=== PATIENT | female | born 1970 | race Caucasian/White ===

== ENCOUNTER → 2019-11-27 10:03 | Outpatient (BNVA) | payer BC, SELFPAY | PROVIDERS: Family Provider Family Medicine; Visit Provider Emergency Medicine | DX: Z11.59 Encounter for screening for other viral diseases (principal); J45.21 Mild intermittent asthma with (acute) exacerbation; J40 Bronchitis, not specified as acute or chronic | CPT/HCPCS: 87635 ==

== ENCOUNTER → 2020-09-17 13:18 | Outpatient (BNVA) | payer BC, SELFPAY | PROVIDERS: Family Provider Family Medicine; Visit Provider Nurse Practitioner Family | DX: J06.9 Acute upper respiratory infection, unspecified (principal); Z20.822 Contact with and (suspected) exposure to COVID-19 | CPT/HCPCS: 87635 ==

== ENCOUNTER 2020-09-25 06:02 | Outpatient (CLI) | payer BC, SELFPAY ==
--- NOTE | 2020-09-25 07:03 | ED_ITS ---
HPI - General Adult General: Source: patient Mode of arrival: ambulatory Limitations: no limitations History of Present Illness: HPI narrative: Patient is here for outpatient Covid infusion. Patient states she was diagnosed with Covid 8 days ago. She states she has mild shortness of breath. Patient denies any other problems. Onset (ago): week(s) (1) Severity: mild Relieving factors: none Exacerbating factors: other (Exercise) Associated symptoms: Reports dyspnea and short of breath Review of Systems Const: Denies: fever(s) Resp: Reports: dyspnea and non-productive cough PFSH ED PFSH: Medical History Asthma Female Reproductive History: Spontaneous abortions: No Physical Exam Const: COMMON NORMALS: no acute distress, patient oriented x3, no limitations and well nourished (Mild cough. Oxygen saturation 100% on room air.) GENERAL APPEARANCE: cooperative HENMT: COMMON NORMALS: normocephalic and atraumatic HEAD & SCALP: normocephalic and atraumatic FACE & SINUS: normal facial exam Eye: COMMON NORMALS: EOMs intact bilaterally Neck/C-Spine: COMMON NORMALS: full ROM, no lymphadenopathy, supple and no meningeal signs GENERAL: Yes normal visual inspection Lymph: LYMPHATIC: no lymphadenopathy noted Chest: COMMONS NORMALS: normal inspection of the chest and normal palpation of entire chest wall CHEST: No Ecchymosis present and No rash Resp: COMMON NORMALS: normal respiratory effort, No retractions and clear to auscultation bilaterally EFFORT & INSPECTION: No respiratory distress AUSCULTATION: clear to auscultation bilaterally Cardio: COMMON NORMALS: regular rate, regular rhythm and Peripheral pulses 2+ throughout JUGULAR VENOUS DISTENTION: no JVD RATE: regular rate RHYTHM: regular rhythm PERIPHERAL PULSES: Peripheral pulses 2+ throughout GI: COMMON NORMALS: Normal to inspection, nondistended, normoactive bowel sounds present and non-tender : COMMON NORMALS: Yes no CVA tenderness BLADDER/KIDNEY EXAM: Yes no CVA tenderness Back/Pelvis: COMMON NORMALS: no CVA tenderness Extremity: COMMON NORMALS: normal to inspection, full ROM and capillary refill normal Neuro: COMMON NORMALS: patient oriented x3, CN's II-XII intact bilaterally, no focal motor deficits and no sensory deficits noted MENINGEAL SIGNS: Yes no meningeal signs Psych: COMMON NORMALS: mental status grossly normal and Normal thought process present THOUGHT PROCESS: Normal thought process present Skin: COMMON NORMALS: no rashes or lesions noted and no wounds GENERAL SKIN EXAM: no rashes or lesions noted Discharge Plan Discharge Patient Disposition: Home Prescriptions: No Action gabapentin 100 mg capsule 200 mg PO .COMPLEX RF: 0 albuterol sulfate 90 mcg/actuation HFA aerosol inhaler 2 puff INHALATION Q6H PRN (Reason: shortness of breath or wheezing) Qty: 8.5 RF: 0 Discharge Orders: Discharge Order (Routine); Ordered 09/25/20 Ordered By: Chad Montes De Oca Referrals: Sonu Walters DO [Family Provider] - Activity: Increase activity as tolerated Patient Instructions: Viral Syndrome - Adult Activity Restrictions/Additional Instructions: Return if any problems. Follow-up with family doctor as needed. Coding Level of Care Code ED [employer] Director for [employer] Fwd Exam Comprehensive
[2020-09-25 07:20] VITALS: BP 114/86; PULSE 64; RESP 20; O2SAT 100
[2020-09-25 08:37] VITALS: BP 105/79; PULSE 64; RESP 18; O2SAT 97
[2020-09-25 09:34] VITALS: BP 104/80; PULSE 61; RESP 18; O2SAT 98
[2020-09-25 10:00] VITALS: BP 104/80; PULSE 64; RESP 18; O2SAT 98
--- NOTE | 2020-09-27 14:56 | DCPLANNER ---
manager training and development had message that patient had received the BAM infusion. manager training and development called to check on patient to see how she was feeling. manager training and development spoke with patient, she stated that before the infusion she had body aches, sore throat, was nauseous, had diarrhea. Patient stated that she is feeling much better.
== END 2020-09-25 06:03 | disposition home or self-care (01) ==
PROVIDERS: Family Provider Family Medicine; Visit Provider Nurse Practitioner Family
DX: U07.1 COVID-19 (principal)

== ENCOUNTER → 2022-10-30 12:08 | Outpatient (BNVA) | payer BC, SELFPAY | PROVIDERS: Family Provider Family Medicine; PCP Registered Nurse; Referring Provider Registered Nurse; Visit Provider Internal Medicine Rheumatology | DX: Z79.899 Other long term (current) drug therapy (principal); M19.90 Unspecified osteoarthritis, unspecified site; R19.7 Diarrhea, unspecified; Z11.59 Encounter for screening for other viral diseases; Z11.1 Encounter for screening for respiratory tuberculosis; R76.8 Other specified abnormal immunological findings in serum; K52.9 Noninfective gastroenteritis and colitis, unspecified; Z71.85 Encounter for immunization safety counseling | CPT/HCPCS: 36415; 72040; 72100; 73130; 80053; 85025; 85651; 86480; 86704; 86803; 87340 ==

== ENCOUNTER → 2023-03-02 11:41 | Outpatient (BNVA) | payer BC, SELFPAY | PROVIDERS: Family Provider Family Medicine; PCP Registered Nurse; Visit Provider Internal Medicine Rheumatology | DX: Z79.899 Other long term (current) drug therapy (principal); M19.90 Unspecified osteoarthritis, unspecified site; M25.559 Pain in unspecified hip; R51.9 Headache, unspecified; R20.0 Anesthesia of skin; R76.8 Other specified abnormal immunological findings in serum; K52.9 Noninfective gastroenteritis and colitis, unspecified; Z71.85 Encounter for immunization safety counseling | CPT/HCPCS: 36415; 72170; 80076; 82565; 84439; 84443; 85025; 86140 ==

== ENCOUNTER 2023-03-17 09:08 | Outpatient (CLI) | payer BC, SELFPAY ==
--- NOTE | 2023-03-17 09:30 | CT_ITS ---
WS: [id number] CT HEAD TECHNIQUE: Noncontrast CT of the head obtained from the skullbase to the vertex. CLINICAL INFORMATION: R51.9 - Headache, unspecified COMPARISON: None. DLP: 939.[address] scans at [facility] use at least one of these dose optimization techniques: automated e xposure control; mA and/or kV adjustment per patient size (includes targeted exams where dose is matc hed to clinical indication); or iterative reconstruction. FINDINGS: No evidence of intracranial hemorrhage or mass effect. Ventricular system and basal cisterns are caldera nt. No extra-axial fluid collections. No evidence of mass or mass effect. Normal johnson-white different iation. Paranasal sinuses and mastoid air cells are well aerated. .Normal visualized soft tissues. IMPRESSION: 1. No evidence of intracranial hemorrhage or mass effect. 2. No acute intracranial findings.
== END 2023-03-17 09:09 | disposition home or self-care (01) ==
LOC: RAD 09:10
PROVIDERS: Family Provider Family Medicine; PCP Registered Nurse; Visit Provider Internal Medicine Rheumatology
DX: R51.9 Headache, unspecified (principal); R20.0 Anesthesia of skin
CPT/HCPCS: 70450

== ENCOUNTER → 2023-04-29 09:30 | Outpatient (BNVA) | payer BC, SELFPAY | PROVIDERS: Family Provider Family Medicine; PCP Registered Nurse; Visit Provider Psychiatry & Neurology Neurology | DX: R51.9 Headache, unspecified (principal); R55 Syncope and collapse; R56.9 Unspecified convulsions; R47.81 Slurred speech; R20.9 Unspecified disturbances of skin sensation; Z79.899 Other long term (current) drug therapy | CPT/HCPCS: 36415; 82306; 82607; 82746; 83735; 83921; 84155; 84165; 86334; 86617 ==

== ENCOUNTER 2023-05-19 15:49 | Outpatient (CLI) | payer BC, SELFPAY ==
[2023-05-19] MEDS: iohexol 350 mg/mL 500 mL Btl (per mL) IV (16:27)
--- NOTE | 2023-05-19 16:30 | CT_ITS ---
WS: [id number] CT ANGIOGRAM CEREBRAL AND CAROTID ARTERIES HISTORY: R51.9 - Headache, unspecified TECHNIQUE: CT angiogram is performed of the carotid and cerebral arteries. During arterial injection imaging is obtained from the skull vertex to the aortic arch in 1.25 mm imaging. Coronal and sagittal reformats are submitted. Additional multi planar reformats of the carotid and cerebral arteries are submitted, MIP imaging also reviewed. NASCET criteria utilized. [facility] e at least one of these dose optimization techniques: automated exposure control; mA and/or kV adjust ment per patient size (includes targeted exams where dose is matched to clinical indication); or iter ative reconstruction. CONTRAST: Omnipaque 350; 100 mL IV. DLP: 1104.33 mGy.cm COMPARISON: 03/17/[address] head is first performed. There is no hemorrhage or mass effect. No edema or interval c hange. Ventricles are normal size. Carotid Angiogram: Right carotid: Common carotid artery: Arises normally from the innominate artery. No significant plaque or stenosis. Internal carotid artery: No plaque or stenosis. External carotid artery: Patent. Left carotid: Common carotid artery: Arises normally from the aorta. No significant plaque or stenosis. Internal carotid artery: No plaque or stenosis. External carotid artery: Patent. Right vertebral artery: Normal, codominant. Left vertebral artery: Arises directly from the arch. Normal and codominant. Subclavian arteries: No stenosis or significant abnormality. Upper thorax: Normal. Thyroid gland: Normal. Osseous structures: Mild degenerative disc disease at C6-7. CEREBRAL ANGIOGRAM: Intracranial vertebral arteries: Normal with no significant atherosclerosis. Basilar artery: No significant stenosis or occlusion. No aneurysm. Intracranial Internal carotid arteries: Demonstrates no significant stenosis or plaque. Middle cerebral arteries: Normal. Anterior cerebral arteries and ACOM: Normal. Posterior cerebral arteries and PCOM's: Normal. Dural venous sinuses are normally enhancing. Mastoid air cells: Normal. Paranasal sinuses: Normal. Calvarium: Normal. IMPRESSION: 1. Normal cervical carotid arteries. No stenosis or plaque. 2. No cerebral aneurysm or occlusions. 3. No vasculitis. 4. Normal vertebral arteries. LEFT vertebral artery arises directly from the arch. 5. Unremarkable [employer] [place].
== END 2023-05-19 15:50 | disposition home or self-care (01) ==
LOC: RAD 15:50
PROVIDERS: Family Provider Family Medicine; PCP Registered Nurse; Visit Provider Psychiatry & Neurology Neurology
DX: R51.9 Headache, unspecified (principal); R55 Syncope and collapse; R56.9 Unspecified convulsions
CPT/HCPCS: 70496; 70498; Q9967

== ENCOUNTER → 2023-06-01 15:32 | Outpatient (BNVA) | payer BC, SELFPAY | PROVIDERS: Family Provider Family Medicine; PCP Registered Nurse; Visit Provider Internal Medicine Rheumatology | DX: Z79.899 Other long term (current) drug therapy (principal); M19.90 Unspecified osteoarthritis, unspecified site; R76.8 Other specified abnormal immunological findings in serum | CPT/HCPCS: 81001; 87086 ==

== ENCOUNTER 2023-06-05 13:30 | Outpatient (CLI) | payer BC, SELFPAY ==
--- NOTE | 2023-06-05 14:00 | XR_ITS ---
WS: [email or web address] SCREENING DEXA SCAN [facility] CLINICAL INFORMATION: M81.0 - Age-related osteoporosis without current patholog... COMPARISON: None. FINDINGS: The L1-L4 bone mineral density measures 1.008 g/cm2. This corresponds to a T score score of -1.4 and Z score of -0.7. Left femoral neck bone mineral density measures 0.795 g/cm2. This corresponds to a T score of -1.7 an d Z score of -1.0. Right femoral neck bone mineral density measures 0.819 g/cm2. This corresponds to a T score -1.5of an d Z score of -0.8. Mean femoral neck bone mineral density measures 0.807 g/cm2. This corresponds to a T score of -1.6 an d Z score of -0.9. IMPRESSION: Osteopenia lumbar spine. Osteopenia femoral necks. Patient's FRAX calculated 10 year probability for major osteoporotic fracture is 10.6% and osteoporot ic hip fracture is 1.5%.
== END 2023-06-05 13:31 | disposition home or self-care (01) ==
LOC: RAD 13:31
PROVIDERS: Family Provider Family Medicine; PCP Registered Nurse; Visit Provider Internal Medicine Rheumatology
DX: Z13.820 Encounter for screening for osteoporosis (principal); M81.0 Age-related osteoporosis without current pathological fracture; M85.89 Other specified disorders of bone density and structure, multiple sites
CPT/HCPCS: 77080

== ENCOUNTER 2023-10-27 07:13 | Outpatient (CLI) | payer BC, SELFPAY ==
--- NOTE | 2023-10-27 08:00 | CT_ITS ---
WS: [email or web address] CT CERVICAL SPINE TECHNIQUE: Noncontrast and contrast-enhanced CT of the cervical spine with coronal and sagittal refor matted images. CLINICAL INFORMATION: G43.911 - Migraine, unspecified, intractable, with status... COMPARISON: None. DLP: 278.[address] scans at [facility] use at least one of these dose optimization techniques: automated e xposure control; mA and/or kV adjustment per patient size (includes targeted exams where dose is matc hed to clinical indication); or iterative reconstruction. FINDINGS: Straightening of the normal cervical lordosis. Disc osteophyte complex worse at C6-7. No high-grade c entral canal stenosis. No abnormal enhancement. C2-C3: Normal. C3-C4: Mild facet arthropathy. Spinal canal and foramina are patent. C4-C5: Mild facet arthropathy worse on the LEFT. Spinal canal and foramen are patent. C5-C6: Mild disc osteophyte ridging. Spinal canal is patent. Mild facet arthropathy. Uncovertebral calin int hypertrophy. Spinal canal and foramina are patent. C6-C7: Disc space narrowing with disc osteophyte complex. Spinal canal is patent. Mild LEFT and no si gnificant RIGHT bony foraminal narrowing. Mild facet arthropathy. C7-T1: No significant disc bulging. Spinal canal and foramen are patent. Visualized posterior nasopharynx: Normal. Prevertebral soft tissues: Normal. Slightly nodular thyroid. Lung apices are well aerated. Codominant and patent vertebral arteries appear patent. Common carotid and ICAs appear patent where v isualized. CT/CT cervical spine wo/w [id number] IMPRESSION: 1. Straightening of the normal cervical lordosis. Disc space narrowing worse a t C6-7. 2. Disc osteophyte complex C6-7 with mild LEFT bony foraminal narrowing. 3. Mild facet arthropathy worse at LEFT C3-C4 and LEFT C4-C5. 4. No abnormal enhancement. 5. Slightly nodular thyroid.
[2023-10-27] MEDS: iohexol 350 mg/mL 500 mL Btl (per mL) IV (08:07)
== END 2023-10-27 07:14 | disposition home or self-care (01) ==
LOC: RAD 07:13
PROVIDERS: Family Provider Family Medicine; PCP Registered Nurse; Visit Provider Psychiatry & Neurology Neurology
DX: G43.911 Migraine, unspecified, intractable, with status migrainosus (principal); R53.1 Weakness; M54.2 Cervicalgia
CPT/HCPCS: 72127; Q9967

== ENCOUNTER → 2024-01-26 07:41 | Outpatient (BNVA) | payer BC, SELFPAY | PROVIDERS: Family Provider Family Medicine; PCP Registered Nurse; Visit Provider Podiatrist Foot & Ankle Surgery | DX: M79.671 Pain in right foot (principal); M79.672 Pain in left foot; G62.9 Polyneuropathy, unspecified | CPT/HCPCS: 73630 ==

== ENCOUNTER → 2024-02-29 15:12 | Outpatient (BNVA) | payer BC, SELFPAY | PROVIDERS: Family Provider Family Medicine; PCP Registered Nurse; Visit Provider Internal Medicine Rheumatology | DX: M06.041 Rheumatoid arthritis without rheumatoid factor, right hand (principal); M06.042 Rheumatoid arthritis without rheumatoid factor, left hand; Z79.899 Other long term (current) drug therapy | CPT/HCPCS: 36415; 80076; 82306; 82565; 84439; 84443; 85025; 85651; 86140 ==

== ENCOUNTER 2024-03-22 14:53 | Outpatient (CLI) | payer MEDICAID, SELFPAY ==
--- NOTE | 2024-03-22 16:27 | XRR_ITS ---
PROCEDURE INFORMATION: Exam: XR Sacrum and Coccyx, 2 or More Views Exam date and time: 03/22/2024 4:32 PM Age: 53 years old Clinical indication: Pain in coccyx area; Additional info: Chronic pain syndrome TECHNIQUE: Imaging protocol: XR of the sacrum and coccyx, 2 or more views. COMPARISON: CR XR pelvis 1-2V* [id number] 03/02/2023 12:01 PM FINDINGS: Bones/joints: Normal. No acute fracture. Soft tissues: Normal. A nerve stimulator device is seen with electrode projecting over the left sacrum. XR/XR sacrum coccyx min 2V [id number] IMPRESSION: No acute findings.
== END 2024-03-22 14:54 | disposition home or self-care (01) ==
LOC: RAD 14:58
PROVIDERS: Family Provider Family Medicine; PCP Registered Nurse; Visit Provider Registered Nurse
DX: M53.3 Sacrococcygeal disorders, not elsewhere classified (principal); G89.4 Chronic pain syndrome; Z96.82 Presence of neurostimulator
CPT/HCPCS: 72220

== ENCOUNTER → 2024-03-28 09:05 | Outpatient (BNVA) | payer MEDICAID, SELFPAY | PROVIDERS: Family Provider Family Medicine; PCP Registered Nurse; Referring Provider Psychiatry & Neurology Neurology; Visit Provider Internal Medicine | DX: E04.1 Nontoxic single thyroid nodule (principal); R13.10 Dysphagia, unspecified; Z80.8 Family history of malignant neoplasm of other organs or systems | CPT/HCPCS: 99203; 99204 ==

== ENCOUNTER 2024-04-20 08:11 | Outpatient (CLI) | payer OTHER, MEDICAID, SELFPAY ==
--- NOTE | 2024-04-20 08:27 | US_ITS ---
WS: [id number] THYROID ULTRASOUND HISTORY: Dysphagia COMPARISON: None available. Right lobe: 1.9 cm x 1.7 cm x 5.2 cm (w x ap x l). Volume: 8.2 cm3. Normal sized thyroid. Tiny colloid cyst anterior lower pole. No solid mass or microcalcifications. Left lobe: 1.7 cm x 1.7 cm x 4.6 cm (w x ap x l). Volume: 6.4 cm3. Normal size and echotexture. No significant or dominant nodules are present. Isthmus: 0.3 cm. US/US thyroid [id number] IMPRESSION: TI-RADS 1; benign. No imaging follow-up recommended.
--- NOTE | 2024-04-20 09:00 | FL_ITS ---
WS: [id number] Exam: FL barium swallow modifd [id number] Date/Time of Exam: 04/20/2024 8:13 AM Reason For Exam: Fluoroscopy time: 2min [id number] minutes # of spot films: Modified barium swallow was performed in conjunction with the speech therapy service. Oral pharyngeal phase of swallowing was normal. The patient tolerated all consistencies of barium mix ture foodstuffs without penetration or aspiration. The patient swallowed a barium tablet without diff iculty or complication. FL/FL barium swallow modifd [id number] IMPRESSION: 1. Unremarkable modified barium swallow test. A separate report and recommendations will follow from the speech therapy servi ce.
== END 2024-04-20 08:12 | disposition home or self-care (01) ==
LOC: RAD 08:12
PROVIDERS: Family Provider Family Medicine; PCP Registered Nurse; Visit Provider Internal Medicine
DX: R13.10 Dysphagia, unspecified (principal); Z80.8 Family history of malignant neoplasm of other organs or systems; E04.1 Nontoxic single thyroid nodule
CPT/HCPCS: 74230; 76536; 92611

== ENCOUNTER → 2024-06-13 15:20 | Outpatient (BNVA) | payer BC, MEDICAID, SELFPAY | PROVIDERS: Family Provider Family Medicine; PCP Registered Nurse; Visit Provider Internal Medicine Rheumatology | DX: Z79.899 Other long term (current) drug therapy (principal) | CPT/HCPCS: 36415; 80076; 82565; 85025; 85651; 86140 ==

== ENCOUNTER 2024-07-14 09:20 | Outpatient (CLI) | payer OTHER, MEDICAID, SELFPAY ==
--- NOTE | 2024-07-14 09:30 | MR_ITS ---
WS: [email or web address] MRI LUMBAR SPINE NONCONTRAST HISTORY: M54.16 - Radiculopathy, lumbar region COMPARISON: None available. TECHNIQUE: Sagittal and axial multisequence imaging is submitted. Normal lumbar alignment with no compression fractures or marrow edema. Mild disc desiccation. No significant loss of height. Conus terminates normally at L1-2 disc level. L1-L2: Normal. L2-L3: Mild osteophytic ridging with disc bulging and a central/RIGHT paracentral disc protrusion. Mild facet arthritis. Very minimal subarticular and foraminal narrowing. L3-L4: Mild annular disc bulging. Mild LEFT foraminal stenosis. L4-L5: Mild diffuse annular disc bulging with a shallow RIGHT foraminal disc protrusion and annular fissure. Mild disc encroachment upon the traversing L5 nerve roots. No foraminal stenosis. L5-S1: Mild annular disc bulging and osteophytic ridging. RIGHT foraminal disc protrusion. Smaller disc protrusion LEFT foramen. There is mild disc contact on the S1 nerve roots. Mild subarticular recess stenosis. No foraminal stenosis. Paravertebral soft tissues are normal. MR/MR lumbar spine wo con* [id number] IMPRESSION: 1. No high-grade central or foraminal stenosis. 2. Shallow central to RIGHT paracentral disc protrusion at L2-3. 3. L2-3: Very minimal subarticular recess and foraminal narrowing. 4. L3-4: Mild LEFT foraminal stenosis. 5. L4-5: Shallow RIGHT foraminal disc protrusion with fissure. Mild annular di sc bulging encroaching upon the traversing L5 nerve roots. 6. L5-S1: RIGHT foraminal disc protrusion. Smaller LEFT foraminal protrusion. Minimal disc contact on the S1 nerve roots.
== END 2024-07-14 09:21 | disposition home or self-care (01) ==
LOC: RAD 09:20
PROVIDERS: PCP Registered Nurse; Visit Provider Anesthesiology Pain Medicine
DX: M54.16 Radiculopathy, lumbar region (principal); M48.061 Spinal stenosis, lumbar region without neurogenic claudication; M51.369 Other intervertebral disc degeneration, lumbar region without mention of lumbar back pain or lower extremity pain; M48.07 Spinal stenosis, lumbosacral region; M25.78 Osteophyte, vertebrae; M51.26 Other intervertebral disc displacement, lumbar region; M47.896 Other spondylosis, lumbar region; M51.379 Other intervertebral disc degeneration, lumbosacral region without mention of lumbar back pain or lower extremity pain; M51.27 Other intervertebral disc displacement, lumbosacral region
CPT/HCPCS: 72148

== ENCOUNTER → 2024-08-25 14:55 | Outpatient (BNVA) | payer OTHER, MEDICAID, SELFPAY | PROVIDERS: Family Provider Family Medicine; PCP Registered Nurse; Visit Provider Internal Medicine Rheumatology | DX: Z79.899 Other long term (current) drug therapy (principal) | CPT/HCPCS: 36415; 80076; 82565; 85025; 85651; 86140 ==

== ENCOUNTER 2024-09-26 09:28 | Outpatient (CLI) | payer OTHER, MEDICAID, SELFPAY | END 2024-09-26 09:29 | disposition home or self-care (01) | LOC: LAB 09:31 | PROVIDERS: PCP Registered Nurse; Visit Provider Internal Medicine Rheumatology | DX: Z79.899 Other long term (current) drug therapy (principal) | CPT/HCPCS: 36415; 86480 ==

== ENCOUNTER → 2025-03-20 14:49 | Outpatient (BNVA) | payer MEDICAID, OTHER, SELFPAY | PROVIDERS: PCP Registered Nurse; Visit Provider Internal Medicine Rheumatology | DX: M06.041 Rheumatoid arthritis without rheumatoid factor, right hand (principal); M06.042 Rheumatoid arthritis without rheumatoid factor, left hand; Z79.899 Other long term (current) drug therapy | CPT/HCPCS: 36415; 80076; 82565; 85025; 85651; 86140 ==